=== PATIENT | female | born 1985 | race Hispanic/Latino ===

== ENCOUNTER 2020-05-16 10:33 | Outpatient (CLI) | payer OTHER ==
[2020-05-16 21:53] LABS: SARS-CoV-2 PCR by NAA Not Detected (NotDetected)
== END 2020-05-16 10:34 | disposition home or self-care (01) ==
LOC: CSHLAB 10:33
PROVIDERS: ATTEND Student in an Organized Health Care Education/Training Program
DX: Z20.822 Contact with and (suspected) exposure to COVID-19 (principal)
CPT/HCPCS: 87635; U0003; U0005

== ENCOUNTER 2022-07-02 19:33 | Inpatient (IN) | payer MEDICAID, SELFPAY ==
[2022-07-02] MEDS ORDERED: Oxytocin 10 UNITS/ML VIAL ONE (19:52)
[2022-07-02] MEDS ORDERED: Promethazine HCl 25 MG/ML VIAL IM PRN (19:58)
[2022-07-02] MEDS ORDERED: Bisacodyl 10 MG SUPP PR PRN (19:58)
[2022-07-02] MEDS ORDERED: Preparation H Ointment 28 GM TUBE PR PRN (19:58)
[2022-07-02] MEDS ORDERED: diphenhydrAMINE 25 MG CAP PO PRN (19:58)
[2022-07-02] MEDS ORDERED: Methylergonovine 0.2 MG/ML VIAL IM PRN (19:58)
[2022-07-02] MEDS ORDERED: Lidocaine 1% (PF) 30 ML VIAL SC PRN (19:58)
[2022-07-02] MEDS ORDERED: Benzocaine-Menthol 82.5 ML CAN TOP PRN (19:58)
[2022-07-02] MEDS ORDERED: Milk Of Magnesia 30 ML UDCUP PO PRN (19:58)
[2022-07-02] MEDS ORDERED: Boostrix 0.5 ML (Tdap) VIAL (>/=7 yrs of age) IM ONE (19:58)
[2022-07-02] MEDS ORDERED: Ondansetron PF 4 MG/2 ML Vial IVP PRN ×2 (19:58)
[2022-07-02] MEDS ORDERED: hydrALAZINE 20 MG/ML VIAL SLOW IVP PRN ×2 (19:58)
[2022-07-02] MEDS ORDERED: Lanolin Ointment 7 GM TUBE TOP PRN (19:58)
[2022-07-02] MEDS ORDERED: Ibuprofen 800 MG TAB PO PRN (19:58)
[2022-07-02] MEDS ORDERED: Acetaminophen 500 MG TAB PO PRN (19:58)
[2022-07-02] MEDS ORDERED: NS w/ Oxytocin 30 units 500 ML IV SCH ×2 (20:00)
[2022-07-02] MEDS ORDERED: Ondansetron ODT 4 MG TAB PO PRN (20:06)
[2022-07-02] MEDS ORDERED: Ondansetron PF 4 MG/2 ML Vial ONE (20:08)
[2022-07-02] MEDS ORDERED: Lactated Ringer's 1,000 ML IV SCH (20:15)
[2022-07-02 20:35] LABS: Hemoglobin 12.2 g/dL (12.0-15.5); Mean Corpuscular Hemoglobin 30.7 pg (27.0-33.0); Mean Corpuscular Volume 90.2 fl (81.6-98.3); Mean Platelet Volume 12.1 fl (7.4-10.4); Platelet Count 178 10x3/uL (150-450); RBC Distribution Width 14.3 % (11.5-14.5); Red Blood Cell (RBC) Count 3.98 10x6/uL (3.90-5.03); White Blood Cell (WBC) Count 9.6 10x3/uL (3.5-10.5)
[2022-07-02] MEDS ORDERED: Docusate 100 MG CAP PO SCH (21:00)
[2022-07-02 21:13] VITALS: BMI 23.8
[2022-07-02 21:17] LABS: HBSAg Index 0.16 S/CO (0-0.99); Hep B Surf Ag - L&D Non-Reactive S/CO (NonReactive)
[2022-07-02 21:19] LABS: Syphilis Antibody Nonreactive (Nonreactive); Syphilis Antibody Index 0.04 S/CO (<1.00 Non-Reactive)
[2022-07-02] MEDS ORDERED: Ibuprofen 800 MG TAB PO SCH (22:00)
[2022-07-03] MEDS ORDERED: hydrALAZINE 20 MG/ML VIAL SLOW IVP PRN (00:10)
[2022-07-03] MEDS ORDERED: Milk Of Magnesia 30 ML UDCUP PO PRN (00:10)
[2022-07-03] MEDS ORDERED: Bisacodyl 10 MG SUPP PR PRN (00:10)
[2022-07-03] MEDS ORDERED: Lanolin Ointment 7 GM TUBE TOP PRN (00:10)
[2022-07-03] MEDS ORDERED: Ondansetron PF 4 MG/2 ML Vial IVP PRN (00:10)
[2022-07-03] MEDS ORDERED: diphenhydrAMINE 25 MG CAP PO PRN (00:10)
[2022-07-03] MEDS ORDERED: Methylergonovine 0.2 MG/ML VIAL IM PRN (00:10)
[2022-07-03] MEDS ORDERED: Benzocaine-Menthol 82.5 ML CAN TOP PRN (00:10)
[2022-07-03] MEDS ORDERED: NS w/ Oxytocin 30 units 500 ML IV SCH (00:30)
[2022-07-03] MEDS ORDERED: Docusate 100 MG CAP PO SCH (00:30)
[2022-07-03] MEDS: Ibuprofen 800 MG TAB PO SCH ×4 (04:31→21:33)
[2022-07-03 04:58] LABS: Hemoglobin 11.3 g/dL (12.0-15.5); Mean Corpuscular HGB CONC 33.4 g/dL (32.0-36.0); Mean Corpuscular Hemoglobin 30.1 pg (27.0-33.0); Mean Corpuscular Volume 90.1 fl (81.6-98.3); Mean Platelet Volume 11.8 fl (7.4-10.4); Platelet Count 179 10x3/uL (150-450); RBC Distribution Width 14.2 % (11.5-14.5); Red Blood Cell (RBC) Count 3.75 10x6/uL (3.90-5.03); White Blood Cell (WBC) Count 11.1 10x3/uL (3.5-10.5)
[2022-07-03] MEDS ORDERED: Ferrous Sulfate 325 MG TAB PO SCH (08:00)
[2022-07-03] MEDS: Prenatal Vitamin 1 TAB PO SCH (08:29)
[2022-07-03] MEDS: Docusate 100 MG CAP PO SCH ×2 (08:29→21:33)
[2022-07-03] MEDS ORDERED: Prenatal Vitamin 1 TAB PO SCH (09:00)
[2022-07-03] MEDS ORDERED: Sertraline 25 MG TAB PO SCH ×2 (10:15)
[2022-07-03] MEDS: Acetaminophen 500 MG TAB PO SCH ×2 (10:40→17:49)
[2022-07-03] MEDS: Ferrous Sulfate 325 MG TAB PO SCH ×2 (11:15→16:30)
[2022-07-03] MEDS ORDERED: Acetaminophen 500 MG TAB PO SCH (14:00)
[2022-07-03] MEDS ORDERED: Melatonin 3 MG TAB PO SCH (22:15)
[2022-07-04] MEDS: Acetaminophen 500 MG TAB PO SCH ×2 (00:34→09:26)
[2022-07-04] MEDS: Ibuprofen 800 MG TAB PO SCH (05:26)
[2022-07-04] MEDS: Ferrous Sulfate 325 MG TAB PO SCH (06:48)
[2022-07-04 07:30] VITALS: BP 95/56; TEMP 97.6
[2022-07-04] MEDS ORDERED: Sertraline 25 MG TAB PO SCH (09:00)
[2022-07-04] MEDS: Prenatal Vitamin 1 TAB PO SCH (09:26)
[2022-07-04] MEDS: Docusate 100 MG CAP PO SCH (09:26)
== END 2022-07-04 14:15 | disposition home or self-care (01) | DRG 806 ==
LOC: CSHLD/OP 19:33 → CSHLD 19:59 → CSHPP 23:06
PROVIDERS: ADMIT Family Medicine; ATTEND Family Medicine
PROC: 10E0XZZ Delivery of Products of Conception, External Approach (ICD-10-PCS; principal; 2022-07-02)
DX: O62.3 Precipitate labor (principal); O72.1 Other immediate postpartum hemorrhage; Z37.0 Single live birth; Z3A.38 38 weeks gestation of pregnancy; F32.A Depression, unspecified; O99.344 Other mental disorders complicating childbirth
CPT/HCPCS: 36415; 36416; 85027; 86780; 86850; 86900; 86901; 87340; 99285; J2405; J2590; J7120; Q0162